=== PATIENT | female | born 2000 | race Caucasian/White ===

== ENCOUNTER 2019-06-12 21:56 | Emergency (ER) | payer SELFPAY ==
[2019-06-12 22:21] VITALS: BP 116/57
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
[2019-06-12] MEDS ORDERED: HYDROCODONE/ACETAMINOPHEN 5-325 MG (6 TAB/ER DISP) PO PRN (23:27)
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
== END 2019-06-13 00:02 | disposition home or self-care (01) ==
LOC: ER 21:56
DX: S09.93XA Unspecified injury of face, initial encounter (principal); Y04.2XXA Assault by strike against or bumped into by another person, initial encounter
CPT/HCPCS: 70486; 99284